=== PATIENT | male | born 1990 | race Caucasian/White ===

== ENCOUNTER 2017-06-30 13:44 | Emergency (ER) | payer SELFPAY ==
[2017-06-30] MEDS ORDERED: TORADOL IV ONE (15:56)
[2017-06-30] MEDS ORDERED: CLEOCIN 900 MG/50 mL 900 MG/50 ML BAG IV ONE (15:56)
[2017-06-30] MEDS ORDERED: NACL 0.9% 1000 ML 1,000 ML IV ONE ×2 (15:57→21:41)
[2017-06-30] MEDS ORDERED: ZOFRAN IV ONE (15:58)
--- NOTE | 2017-06-30 16:03 | Emergency Department Report ---
Chief Complaint: Sore Throat Stated Complaint: SORE THROAT Time Seen by Provider: 06/30/17 15:54 - HPI History of Present Illness: Patient care reports that he was seen at his doctor's office and he was sent by primary care physician from [facility] in [facility] for possible peritonsillar abscess. Patient with sore throat and drooling for 3 days. Reports chills and did not take his temperature. Pain is 8 out of 10 and he said it hurts when he swallows better when not swallow. Denies any chest pain or shortness of breath. Denies any nausea or vomiting. - ROS Review of Systems: All systems are negative unless stated in HPI above - Exam Vital Signs: Vital Signs 06/30/17 15:17 Temperature 99.5 F Pulse Rate 125 H Respiratory 20 Rate Blood Pressure 118/77 O2 Sat by Pulse 95 Oximetry Physical Exam: Gen.: This is a 27-year-old male well-nourished well-developed in no acute distress and nontoxic in appearance Mouth: Oral airway is patent, uvula is shifted and noted peritonsillar abscess. Noted patient with spit in multiple times and garbage can. Tongue is normal. MSE screening note: Focused history and physical exam performed. Due to findings the following was ordered:see mdm ED Medical Decision Making - Medical Decision Making MDM: Patient screened by provider in triage area. Appropriate protocol initiated and patient to be seen in main ED by medication to include IV fluids, Zofran, Toradol, Solu-Medrol and clindamycin IV to be given. Patient also to have a CTA of neck ED Disposition for MSE Condition: Stable
[2017-06-30 16:26] LABS: Basophils % (Auto) 0.2 % (0.0-1.8); Eosinophils % (Auto) 0.1 % (0.0-4.3); Hematocrit 50.7 % (35.5-45.6); Hemoglobin 16.7 gm/dl (11.8-15.2); Mean Corpuscular HGB Conc 33 % (32-34); Mean Corpuscular Hemoglobin 31 pg (28-32); Mean Corpuscular Volume 93 fl (84-94); Platelet Count 247 K/mm3 (140-440); Red Blood Count 5.47 M/mm3 (3.65-5.03); Red Cell Distribution Width 13.5 % (13.2-15.2); White Blood Count 17.9 K/mm3 (4.5-11.0)
[2017-06-30 16:38] LABS: INR 1.16 (0.87-1.13)
[2017-06-30 16:39] LABS: Partial Thromboplastin Time 33.9 Sec. (24.2-36.6)
[2017-06-30] MEDS ORDERED: CLEOCIN IV ONE (16:45)
[2017-06-30 16:48] LABS: Alanine Aminotransferase 17 units/L (7-56); Albumin 4.2 g/dL (3.9-5); Albumin/Globulin Ratio 0.9 %; Alkaline Phosphatase 77 units/L (35-129); Anion Gap 22 mmol/L; Blood Urea Nitrogen 15 mg/dL (9-20); Calcium 9.5 mg/dL (8.4-10.2); Carbon Dioxide 22 mmol/L (22-30); Chloride 97.7 mmol/L (98-107); Glucose 91 mg/dL (75-100); Potassium 4.1 mmol/L (3.6-5.0); Sodium 138 mmol/L (137-145)
--- NOTE | 2017-06-30 17:32 | Cat Scan Report ---
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 Left palatine tonsil is enlarged and demonstrates increased enhancement. The uvula is thickened and heterogeneous No evidence for epiglottic enlargement Prominent enlarged right posterior triangle and internal jugular chain lymph nodes are identified. No focal bony lesions are identified. Major salivary glands are unremarkable. Major vascular structures are Normal. IMPRESSION: Large right peritonsillar abscess with appears to be involving the uvula Right-sided reactive cervical lymphadenopathy
[2017-06-30] MEDS: NACL 0.9% 500 ML 500 ML IV ONE ×2 (18:00→19:02)
--- NOTE | 2017-06-30 18:34 | Emergency Department Report ---
ED ENT HPI - General Chief complaint: Sore Throat Stated complaint: SORE THROAT Time Seen by Provider: 06/30/17 15:54 Source: patient Mode of arrival: Ambulatory Limitations: No Limitations - History of Present Illness Initial comments: 27-year-old male with no significant past medical history presents to the Hospital complaining of sore throat 3 days. Patient was initially seen by a outpatient clinic [facility] in [place]. He was sent to the ER for evaluation. Positive subjective fever and chills reported per decreased by mouth intake secondary to pain. Denies shortness of breath. Pain reported 8/ 10 intensity and worse with swallowing. Patient has been unable to eat or drink secondary to pain and swelling. Barely able to swallow his saliva snd having difficulty speaking - Related Data Allergies Allergy/AdvReac Type Severity Reaction Status Date / Time No Known Allergies Allergy Unverified 06/30/17 15:17 ED Dental HPI - General Chief complaint: Sore Throat Stated complaint: SORE THROAT Time Seen by Provider: 06/30/17 15:54 Source: patient Mode of arrival: Ambulatory Limitations: No Limitations - Related Data Allergies Allergy/AdvReac Type Severity Reaction Status Date / Time No Known Allergies Allergy Unverified 06/30/17 15:17 ED Review of Systems ROS: Stated complaint: SORE THROAT Other details as noted in HPI Comment: All other systems reviewed and negative Other: Constitutional: As per HPI Eyes: No eye pain visual changes or discharge ENT: As per HPI Neck: Denies pain Respiratory: Occasional cough Cardiovascular: Denies chest pain GI: Denies abdominal pain, nausea, vomiting : Denies dysuria Musculoskeletal: Denies back pain Skin: Denies rash, lesions, erythema Neurologic: Denies headache, numbness, weakness Psychiatric: Denies suicidal ideation, hallucinations ED Past Medical Hx - Past Medical History Previous Medical History?: Yes Additional medical history: Sore throat - Surgical History Past Surgical History?: No - Social History Smoking Status: Current Every Day Smoker Substance Use Type: Alcohol ED Physical Exam - General Limitations: No Limitations - Other Other exam information: General: No limitations, patient is alert in no acute distress Head exam: Atraumatic, normocephalic Eyes exam: Normal appearance, pupils equal reactive to light, extraocular movements intact ENT: Moist mucous membrane, positive trismus. Very difficult to visualize posterior pharynx since patient was not completely open his mouth and is using tongue to obstruct the view. No stridor. No tender lymphadenopathy Neck exam: Normal inspection, full range of motion, no meningismus Respiratory exam: Clear to auscultation bilateral, no wheezes, rales, crackles Cardiovascular: Mild tachycardia regular rhythm Abdomen: Soft, nondistended, and nontender, with normal bowel sounds, no rebound, or guarding Extremity: Full range of motion normal inspection no deformity Back: Normal Inspection, full range of motion, no tenderness Neurologic: Alert, oriented x3, cranial nerves intact, no motor or sensory deficit Psychiatric: normal affect, normal mood Skin: Warm, dry, intact ED Course Vital Signs 06/30/17 06/30/17 15:17 17:47 Temperature 99.5 F 99.4 F Pulse Rate 125 H 104 H Respiratory 20 16 Rate Blood Pressure 118/77 Blood Pressure 119/74 [Right] O2 Sat by Pulse 95 99 Oximetry - Reevaluation(s) Reevaluation #1: 06/30/17 18:38 Heart rate improved with IV fluids patient also received Toradol, Solu-Medrol, clindamycin, and Zofran - Consultations Consultation #1: 06/30/17 18:31 accepted by [facility] for transfer to ED. Excepting ENT doctor is Dr Vegas , accepting ER physician is Dr. Jimenes ED Medical Decision Making - Lab Data Result diagrams: 06/30/17 16:06 06/30/17 16:06 Lab Results 06/30/17 06/30/17 06/30/17 Range/Units 16:06 16:06 16:06 WBC 17.9 H (4.5-11.0) K/mm3 RBC 5.47 H (3.65-5.03) M/mm3 Hgb 16.7 H (11.8-15.2) gm/dl Hct 50.7 H (35.5-45.6) % MCV 93 (84-94) fl MCH 31 (28-32) pg MCHC 33 (32-34) % RDW 13.5 (13.2-15.2) % Plt Count 247 (140-440) K/mm3 Lymph % (Auto) 5.4 L (13.4-35.0) % Warren % (Auto) 10.6 H (0.0-7.3) % Eos % (Auto) 0.1 (0.0-4.3) % Baso % (Auto) 0.2 (0.0-1.8) % Lymph # 1.0 L (1.2-5.4) K/mm3 Warren # 1.9 H (0.0-0.8) K/mm3 Eos # 0.0 (0.0-0.4) K/mm3 Baso # 0.0 (0.0-0.1) K/mm3 Seg Neutrophils % 83.7 H (40.0-70.0) % Seg Neutrophils # 15.0 H (1.8-7.7) K/mm3 PT 15.4 H (12.2-14.9) Sec. INR 1.16 H (0.87-1.13) APTT 33.9 (24.2-36.6) Sec. VBG pH (7.320-7.420) Sodium 138 (137-145) mmol/L Potassium 4.1 (3.6-5.0) mmol/L Chloride 97.7 L (98-107) mmol/L Carbon Dioxide 22 (22-30) mmol/L Anion Gap 22 mmol/L BUN 15 (9-20) mg/dL Creatinine 0.6 L (0.8-1.5) mg/dL Estimated GFR > 60 ml/min BUN/Creatinine Ratio 25.00 % Glucose 91 (75-100) mg/dL Lactic Acid (0.7-2.0) mmol/L Calcium 9.5 (8.4-10.2) mg/dL Total Bilirubin 1.00 (0.1-1.2) mg/dL AST 20 (5-40) units/L ALT 17 (7-56) units/L Alkaline Phosphatase 77 (35-129) units/L Total Protein 9.0 H (6.3-8.2) g/dL Albumin 4.2 (3.9-5) g/dL Albumin/Globulin Ratio 0.9 % 06/30/17 06/30/17 06/30/17 Range/Units 16:06 16:06 17:33 WBC (4.5-11.0) K/mm3 RBC (3.65-5.03) M/mm3 Hgb (11.8-15.2) gm/dl Hct (35.5-45.6) % MCV (84-94) fl MCH (28-32) pg MCHC (32-34) % RDW (13.2-15.2) % Plt Count (140-440) K/mm3 Lymph % (Auto) (13.4-35.0) % Warren % (Auto) (0.0-7.3) % Eos % (Auto) (0.0-4.3) % Baso % (Auto) (0.0-1.8) % Lymph # (1.2-5.4) K/mm3 Warren # (0.0-0.8) K/mm3 Eos # (0.0-0.4) K/mm3 Baso # (0.0-0.1) K/mm3 Seg Neutrophils % (40.0-70.0) % Seg Neutrophils # (1.8-7.7) K/mm3 PT (12.2-14.9) Sec. INR (0.87-1.13) APTT (24.2-36.6) Sec. VBG pH 7.409 (7.320-7.420) Sodium (137-145) mmol/L Potassium (3.6-5.0) mmol/L Chloride (98-107) mmol/L Carbon Dioxide (22-30) mmol/L Anion Gap mmol/L BUN (9-20) mg/dL Creatinine (0.8-1.5) mg/dL Estimated GFR ml/min BUN/Creatinine Ratio % Glucose (75-100) mg/dL Lactic Acid 1.20 1.10 (0.7-2.0) mmol/L Calcium (8.4-10.2) mg/dL Total Bilirubin (0.1-1.2) mg/dL AST (5-40) units/L ALT (7-56) units/L Alkaline Phosphatase (35-129) units/L Total Protein (6.3-8.2) g/dL Albumin (3.9-5) g/dL Albumin/Globulin Ratio % - EKG Data -: EKG Interpreted by Me (sinus tach [address] elevation or T inversions) - EKG Data When compared to previous EKG there are: previous EKG unavailable - Radiology Data Radiology results: report reviewed CT neck IV contrast: large right peritonisllar abscess involving the uvula 3.9 cm X 3.8 cm X 5.2 cm with reactive cervical lymphadenopathy. No evidence of epiglottic involvement. - Medical Decision Making Patient be transferred to [facility] where he can be evaluated by ENT for peritonsillar abscess drainage. No signs of airway compromise or respiratory distress at this time - Differential Diagnosis pharyngitis, peritonsillar abscess, dehydration Critical Care Time: No Critical care attestation.: If time is entered above; I have spent that time in minutes in the direct care of this critically ill patient, excluding procedure time. ED Disposition Clinical Impression: Peritonsillar abscess Disposition: [id number]/[id number] PSY HOSP/PSY UNIT Is pt being admited?: No Does the pt Need Aspirin: No Condition: Stable Time of Disposition: 18:33 (accepted by Dr Vegas, Dr. Jimenes)
[2017-06-30 21:22] VITALS: BP 120/67
== END 2017-06-30 22:27 ==
LOC: ED 13:44
DX: J36 Peritonsillar abscess (principal); F17.210 Nicotine dependence, cigarettes, uncomplicated
CPT/HCPCS: 36415; 70491; 80053; 82140; 82805; 85025; 85610; 85730; 87040; 87116; 87430; 93005; 93010; 96361; 96365; 96375; 99285; J1885; J2405; J2930; J7030; Q9967